=== PATIENT | female | born 1960 | race Caucasian/White ===

== ENCOUNTER → 2016-10-26 | Outpatient (CLI) | payer OTHER ==
[~2016-10-26] MED LIST: ACET-1256 PO; AMT50 PO; ASPI81TA28 PO; ERGO1CAP35 PO; LOSA25TA18 PO
--- NOTE | 2016-10-26 16:40 | MAMMOGRAPHY REPORT ---
BILATERAL DIGITAL DIAGNOSTIC MAMMOGRAM TOMOSYNTHESIS WITH CAD: 10/26/2016 CLINICAL HISTORY: The patient reports diffuse intermittent left breast pain for a few months. She n otes that the pain is located in different places within the breast at different times. She denies any palpable lumps, nipple discharge, or other complaints. TECHNIQUE: Breast tomosynthesis in addition to standard 2D mammography was performed. Current study was also evaluated with a Computer Aided Detection (CAD) system. Bilateral CC and MLO 2-D and paris synthesis images were obtained. COMPARISON: Comparison is made to exams dated: 12/18/2014 mammogram, 03/14/2013 specimen, 03/14/2013 loc alization, 02/04/2013 mammogram, 01/30/2013 mammogram, and 01/30/2012 mammogram - [facility]. BREAST COMPOSITION: There are scattered areas of fibroglandular density in both breasts. FINDINGS: There are no suspicious masses, calcifications, or areas of architectural distortion noted in either breast. There has been no significant interval change compared to prior exams. As the p ain is diffuse and nonfocal, ultrasound was not performed. IMPRESSION: ACR BI-RADS CATEGORY 2: BENIGN No etiology for diffuse intermittent left breast pain evident. There is no mammographic evidence of malignancy in either breast. Recommend clinical follow-up for left breast pain, and recommend rout ine bilateral screening mammograms in one year. The patient has been verbally notified of the resul ts. Approximately 10% of breast cancers are not detected with mammography. A negative mammographic repor t should not delay biopsy if a clinically suggestive mass is present. Isabel Infante M.D. ah/:10/26/2016 14:57:31 Motor Vehicle Inspector: Amanda DUNN)(Alfonso), [facility] letter sent: Normal 1/2 BI-RADS Code: ACR BI-RADS Category 2: Benign
== END | disposition home or self-care (01) ==
LOC: C.MAMM 14:18
PROVIDERS: ATTEND Internal Medicine
DX: N64.4 Mastodynia (principal)

== ENCOUNTER 2017-07-10 23:54 | Emergency (ER) | payer SELFPAY ==
[~2017-07-10] VITALS: Ht 167.6 cm; Wt 98.4 kg
[2017-07-10 23:58] VITALS: TEMP 36.8; Ht 167.6 cm; Wt 98.4 kg
[2017-07-11] MEDS ORDERED: FENTANYL CITRATE INJ 50 MCG/1 ML 2 ML VIAL IV STA (00:11)
[2017-07-11] MEDS ORDERED: FAMOTIDINE 20MG/5ML IV PUSH IV STA (00:11)
[2017-07-11] MEDS ORDERED: SODIUM CHLORIDE 0.9% 1000ML 1,000 ML IV STA (00:11)
[2017-07-11] MEDS ORDERED: ONDANSETRON INJ 2 MG/ML 2 ML VIAL IV STA (00:11)
[2017-07-11] MEDS ORDERED: OPTIRAY 320 IV PRN (01:00)
[2017-07-11] MEDS ORDERED: PRLSR20 PO (01:02)
[2017-07-11] MEDS ORDERED: BUDE1SUS8 NAE (01:02)
[2017-07-11] MEDS ORDERED: CYAN100020 PO (01:02)
[2017-07-11] MEDS ORDERED: AMT25 PO (01:02)
[2017-07-11] MEDS ORDERED: CLR10 PO (01:02)
[2017-07-11] MEDS ORDERED: LOSA50TA6 PO (01:02)
[2017-07-11] MEDS ORDERED: CHOL1TAB42 PO (01:02)
[2017-07-11 01:07] LABS: BASO % 0.4 %; BASO ABS # 0.03 K/uL (0-0.2); EOS % 1.3 %; EOS ABS # 0.09 K/uL (0-0.5); HEMATOCRIT 37.8 % (37-47); HEMOGLOBIN 12.5 g/dL (12.0-16.0); IG# 0.01 K/uL (0.00-0.02); LYMPH ABS # 1.53 K/uL (1.2-3.4); MEAN CELL VOLUME 90.9 fL (80-100); MEAN CORPUSCULAR HGB CONC 33.1 g/dl (32-36); MONO % 6.8 %; MONO ABS # 0.47 K/uL (0.11-0.59); NEUT % 69.4 %; NEUT ABS # 4.82 K/uL (1.4-6.5); PLATELET COUNT 225 K/uL (130-400); RED CELL DISTRIBUTION WIDTH CV 12.9 % (11.5-14.5); RED CELL DISTRIBUTION WIDTH SD 42.8 fL (36.4-46.3); WHITE BLOOD COUNT 6.95 K/uL (4.8-10.8)
[2017-07-11 01:15] LABS: ALBUMIN 3.8 gm/dl (3.4-5.0); ALT/SGPT 26 U/L (12-78); AST/SGOT 14 U/L (15-37); BLOOD UREA NITROGEN 11 mg/dl (7-18); CALCIUM 8.8 mg/dl (8.5-10.1); CARBON DIOXIDE 28 mmol/L (21-32); CREATININE 0.75 mg/dl (0.60-1.20); GLUCOSE 106 mg/dl (70-99); LIPASE 195 U/L (73-393); POTASSIUM 3.4 mmol/L (3.5-5.1); SODIUM 138 mmol/L (136-145)
[2017-07-11 01:17] LABS: ALKALINE PHOSPHATASE 67 U/L (45-117); TOTAL PROTEIN 8.1 gm/dl (6.4-8.2)
[2017-07-11 02:24] LABS: INFLUENZA B ANTIGEN Neg for Influ B (NEG)
[2017-07-11] MEDS ORDERED: ONDA4TAB10 SL (02:42)
[2017-07-11] MEDS ORDERED: FAMO20TA9 PO (02:42)
--- NOTE | 2017-07-11 02:44 | EMERGENCY ROOM VISIT NOTE ---
History Report prepared by Gee: Bisi Morelos Under the Supervision of: Dr. Indra Tripathi M.D. First contact with patient: 00:09 Chief Complaint: ABDOMINAL PAIN Stated Complaint: ABDOMINAL PAIN History of Present Illness The patient is a 57 year old female who presents to the Emergency Room with complaints of worsening abdominal pain starting 20 hours ago. The patient states that she thought it was just gas or constipation, but it hasn't gotten better. She reports that this has never happened before. She states that she had two bowel movements today, one was constipated and one was diarrhea. The patient complains of the pain being worse with movement. The patient complains of nausea and a cough. The patient notes that she is just getting over a cold. She notes that she always has nasal congestion. The patient denies fever, chills , vomiting, urinary symptoms, a history of diabetes, passing gas, hematuria, and ever having a UTI. The patient notes a history of hypertension and takes 50 mg Losartan. She states that she also has GERD, but notes that this does not feel like that. She notes that her mother was just here with pneumonia and the flu. Source of History: patient Onset: 20 hours ago Position: abdomen Timing: worsening Modifying Factors (Worsening): movement Associated Symptoms: + cough, + nausea, + diarrhea, No fevers, No chills, No vomiting, No urinary symptoms Note: The patient denies passing any gas. Review of Systems See HPI for pertinent positives and negatives. A total of ten systems were reviewed and were otherwise negative. Past Medical & Surgical Medical Problems: (1) ALCOH DEP NEC/NOS-EPISOD (2) DISC DEGENERATION NOS (3) HTN (hypertension) (4) IRON DEFIC ANEMIA NOS (5) PURE HYPERCHOLESTEROLEM (6) REFLUX ESOPHAGITIS Family History Patient reports no known family medical history. Social History Smoking Status: Current Some Day Smoker Alcohol Use: none Drug Use: none Marital Status: single Housing Status: lives with family Occupation Status: employed Current/Historical Medications Scheduled Amitriptyline HCl (Amitriptyline HCl), 25 MG PO HS Aspirin (Aspirin Ec), 81 MG PO HS Budesonide (Nasal) (Rhinocort Allergy), 2 SPRAYS SHANTELL HS Cholecalciferol (Vitamin D), 5,000 UNITS PO HS Cyanocobalamin (Vitamin B12), 1,000 MCG PO HS Famotidine (Pepcid), 20 MG PO BID Loratadine (Claritin), 10 MG PO HS Losartan Potassium (Cozaar), 50 MG PO HS Omeprazole (Prilosec), Unknown Dose PO QAM Ondasetron Odt (Zofran Odt), 4 MG SL Q6H Scheduled PRN Acetaminophen (Tylenol), 500-1,000 MG PO Q6 PRN for Pain Allergies Coded Allergies: Adhesives (Verified Allergy, Intermediate, RASH & BREAKS-OUT, ITCHY & BLISTERS, 07/11/17) TO CLEAR TAPE AND STERI-STRIPS Physical Exam Vital Signs Date Time Temp Pulse Resp B/P (MAP) Pulse Ox O2 Delivery O2 Flow Rate FiO2 07/11/17 02:55 89 18 138/73 98 07/11/17 02:08 86 07/11/17 02:08 92 18 114/83 93 07/10/17 23:58 36.8 103 20 157/73 95 Room Air Physical Exam GENERAL: Awake, alert, uncomfortable appearing, in no distress HENT: Normocephalic, atraumatic. Oropharynx unremarkable. EYES: Normal conjunctiva. Sclera non-icteric. NECK: Supple. No nuchal rigidity. FROM. No JVD. RESPIRATORY: Clear to auscultation. CARDIAC: Regular rate, normal rhythm. Extremities warm and well perfused. Pulses equal. ABDOMEN: Soft, non-distended. Generalized tenderness to palpation. No peritoneal signs. No rebound or guarding. No masses. RECTAL: Deferred. MUSCULOSKELETAL: Chest examination reveals no tenderness. The back is symmetrical on inspection without obvious abnormality. There is no CVA tenderness to palpation. No joint edema. LOWER EXTREMITIES: Calves are equal size bilaterally and non-tender. No edema. No discoloration. NEURO: Normal sensorium. No sensory or motor deficits noted. SKIN: No rash or jaundice noted. Medical Decision & Procedures ER Provider Diagnostic Interpretation: Radiology results as stated below per my review and radiologist interpretation: CT ABDOMEN & PELVIS With Contrast: Liver, gallbladder, kidneys, adrenal glands, spleen, and pancreas are unremarkable. Normal appendix visualized. No bowel obstruction or diverticulitis. Urinary bladder and uterus are unremarkable. Bilateral fat- containing inguinal hernias. No acute osseous findings. Radiologist: Nathalia Morris MD Study ready at 02:08 and initial results transmitted at 02:34. Laboratory Results 07/11/17 00:38 Red Blood Count 4.16, Mean Corpuscular Volume 90.9, Mean Corpuscular Hemoglobin 30.0, Mean Corpuscular Hemoglobin Concent 33.1, Mean Platelet Volume 9.0, Neutrophils (%) (Auto) 69.4, Lymphocytes (%) (Auto) 22.0, Monocytes (%) (Auto) 6.8, Eosinophils (%) (Auto) 1.3, Basophils (%) (Auto) 0.4, Neutrophils # (Auto) 4.82, Lymphocytes # (Auto) 1.53, Monocytes # (Auto) 0.47, Eosinophils # (Auto) 0.09, Basophils # (Auto) 0.03 07/11/17 00:38 Test 07/11/17 00:38 07/11/17 01:00 07/11/17 01:03 07/11/17 01:35 White Blood Count 6.95 K/uL (4.8-10.8) Red Blood Count 4.16 M/uL (4.2-5.4) Hemoglobin 12.5 g/dL (12.0-16.0) Hematocrit 37.8 % (37-47) Mean Corpuscular Volume 90.9 fL (80-100) Mean Corpuscular Hemoglobin 30.0 pg (25-34) Mean Corpuscular Hemoglobin Concent 33.1 g/dl (32-36) Platelet Count 225 K/uL (130-400) Mean Platelet Volume 9.0 fL (7.4-10.4) Neutrophils (%) (Auto) 69.4 % Lymphocytes (%) (Auto) 22.0 % Monocytes (%) (Auto) 6.8 % Eosinophils (%) (Auto) 1.3 % Basophils (%) (Auto) 0.4 % Neutrophils # (Auto) 4.82 K/uL (1.4-6.5) Lymphocytes # (Auto) 1.53 K/uL (1.2-3.4) Monocytes # (Auto) 0.47 K/uL (0.11-0.59) Eosinophils # (Auto) 0.09 K/uL (0-0.5) Basophils # (Auto) 0.03 K/uL (0-0.2) RDW Standard Deviation 42.8 fL (36.4-46.3) RDW Coefficient of Variation 12.9 % (11.5-14.5) Immature Granulocyte % (Auto) 0.1 % Immature Granulocyte # (Auto) 0.01 K/uL (0.00-0.02) Anion Gap 6.0 mmol/L (3-11) Est Creatinine Clear Calc Drug Dose 99.1 ml/min Estimated GFR () 103.3 Estimated GFR (Non- 89.1 BUN/Creatinine Ratio 14.6 (10-20) Calcium Level 8.8 mg/dl (8.5-10.1) Total Bilirubin 0.3 mg/dl (0.2-1) Direct Bilirubin < 0.1 mg/dl (0-0.2) Aspartate Amino Transf (AST/SGOT) 14 U/L (15-37) Alanine Aminotransferase (ALT/SGPT) 26 U/L (12-78) Alkaline Phosphatase 67 U/L (45-117) Total Protein 8.1 gm/dl (6.4-8.2) Albumin 3.8 gm/dl (3.4-5.0) Lipase 195 U/L (73-393) Urine Color YELLOW Urine Appearance CLEAR (CLEAR) Urine pH 7.0 (4.5-7.5) Urine Specific Scott 1.008 (1.000-1.030) Urine Protein NEG (NEG) Urine Glucose (UA) NEG (NEG) Urine Ketones NEG (NEG) Urine Occult Blood NEG (NEG) Urine Nitrite NEG (NEG) Urine Bilirubin NEG (NEG) Urine Urobilinogen NEG (NEG) Urine Leukocyte Esterase TRACE (NEG) Urine WBC (Auto) 1-5 /hpf (0-5) Urine RBC (Auto) 0-4 /hpf (0-4) Urine Hyaline Casts (Auto) 0 /lpf (0-5) Urine Epithelial Cells (Auto) 10-20 /lpf (0-5) Urine Bacteria (Auto) NEG (NEG) Lactic Acid Level 1.0 mmol/L (0.4-2.0) Influenza Type A (RT-PCR) POS for Influ A (NEG) Influenza Type A Antigen Neg for Influ A (NEG) Influenza Type B Antigen Neg for Influ B (NEG) Influenza Type B (RT-PCR) Neg for Influ B (NEG) Laboratory results reviewed by me Medications Administered Medications (Trade) Dose Ordered Sig/Lorenzo Route Start Time Stop Time Status Last Admin Dose Admin Sodium Chloride 1,000 ml @ 999 mls/hr Q1H1M STAT IV 07/11/17 00:11 07/11/17 01:11 DC 07/11/17 01:04 999 MLS/HR Fentanyl Citrate (Fentanyl Inj) 50 mcg NOW STAT IV 07/11/17 00:11 07/11/17 00:15 DC 07/11/17 01:04 50 MCG Ondansetron HCl (Zofran Inj) 4 mg NOW STAT IV 07/11/17 00:11 07/11/17 00:15 DC 07/11/17 01:03 4 MG Famotidine (Pepcid 20mg Iv Push) 20 mg ONE STAT IV 07/11/17 00:11 07/11/17 00:15 DC 07/11/17 01:04 20 MG ED Course 0010: The patient was evaluated in room C12B. A complete history and physical exam was performed. 0238: I reevaluated the patient and she was feeling better. Discussed results and discharge instructions: She verbalized understanding and agreement. The patient is ready for discharge. Medical Decision I reviewed the patient's past medical history, medications, and the nursing notes as described above. Differential diagnoses include colitis, diverticulitis, obstruction, constipation, UTI, pyelonephritis, ureteral stone, biliary etiology, gastroenteritis. The patient is a 57-year-old woman who presents emergency Department with any 24 hours of generalized abdominal pain per history of present illness. I'll the patient is uncomfortable but in no acute distress, afebrile stable vital signs. On exam she has generalized abdominal tenderness without any discrete areas of tenderness. Peritoneal signs. Labs unremarkable including WBC and lactate within normal limits. Initial flu screen negative. Reflex PCR pending. Preliminary stat read read of her CT abdomen and pelvis was unremarkable for acute findings, incidental fat-containing inguinal hernias unlikely to cause the patient's symptoms. Patient feeling improved after IV fluids and IV Pepcid. Sx possibly related to a gastroenteritis given that the patient reported some new loose stools. Plan for PCP follow-up. Findings and plan for follow-up reviewed with patient. Patient agreeable and d/c'd per discharge instructions. Medication Reconcilliation Current Medication List: was personally reviewed by me Blood Pressure Screening Patient's blood pressure: Normal blood pressure Blood pressure disposition: Did not require urgent referral Impression Primary Impression: Generalized abdominal pain Additional Impression: Gastroenteritis Scribe Attestation The scribe's documentation has been prepared under my direction and personally reviewed by me in its entirety. I confirm that the note above accurately reflects all work, treatment, procedures, and medical decision making performed by me. Departure Information Dispostion Home / Self-Care Prescriptions Ondasetron Odt (ZOFRAN ODT) 4 Mg Tab 4 MG SL Q6H for Nausea, #6 TAB Prov: Indra Tripathi M.D. 07/11/17 Famotidine (PEPCID) 20 Mg Tab 20 MG PO BID for 7 Days, #14 TAB Prov: Indra Tripathi M.D. 07/11/17 Referrals Farrah Hudson M.D. (PCP) Forms Call Back Authorization, HOME CARE DOCUMENTATION FORM, IMPORTANT VISIT INFORMATION Patient Instructions ED Abdominal Pain Unkn Cause, ED Gastroenteritis Non Infec, My [facility] Additional Instructions Please follow up with your primary care physician in the next 1-3 days for re- evaluation. Causing her symptoms is not entirely clear at this time however may be due to a viral gastroenteritis. Otherwise, your exam, CT scan, and lab results did not show signs of an emergent condition at this time. Pepcid for additional acid reduction. Zofran as needed for nausea. Drink plenty of fluids to ensure hydration. Return to the emergency department for worsening symptoms as described in the accompanying instructions. Problem Qualifiers
[2017-07-11 02:55] VITALS: BP 138/73; PULSE 89; O2SAT 98
[2017-07-11 02:59] LABS: INFLUENZA A PCR POS for Influ A (NEG); INFLUENZA B PCR Neg for Influ B (NEG)
--- NOTE | 2017-07-11 06:38 | DIAGNOSTIC IMAGING REPORT ---
CT ABD/PELVIS IV CONTRAST ONLY CLINICAL HISTORY: Generalized abdominal pain COMPARISON STUDY: None. TECHNIQUE: Following the IV administration of 92 mL of Optiray-320, CT scan of the abdomen and pelvis was performed from the lung bases to the proximal femurs. Images are reviewed in the axial, sagittal, and coronal planes. IV contrast was administered without complication. A dose lowering technique was utilized adhering to the principles of ALARA. CT DOSE: 1112.92 mGy.cm FINDINGS: Lower chest: There are bibasal or dependent atelectatic changes. Liver: The contrast-enhanced liver is normal in size, contour, and attenuation. There is no intrahepatic biliary ductal dilatation. The hepatic veins and portal veins are patent. Gallbladder: Unremarkable. Spleen: Normal in size and attenuation. Pancreas: Unremarkable. Adrenal glands: Unremarkable. Kidneys: There is symmetric renal cortical enhancement. The kidneys are normal in size without hydronephrosis. Bowel: There are no transition zones to indicate bowel obstruction. There is no evidence of acute diverticulitis. There are no findings to indicate acute appendicitis. Peritoneum: There is no intraperitoneal free air or abdominal ascites. Vasculature: The abdominal aorta is normal in course and caliber. Adenopathy: None. Pelvic viscera: The bladder, and pelvic viscera are unremarkable. There is small fat-containing inguinal hernias. Skeletal structures: No destructive osseous lesions are seen. Degenerative changes are present within the spine IMPRESSION: 1. No acute abdominal or pelvic findings 2. No evidence of bowel obstruction. No evidence of free air 3. No evidence of acute appendicitis. No evidence of acute diverticulitis. Electronically signed by: Ant Venegas M.D. 07/11/2017 6:37 AM Dictated Date/Time: 07/11/2017 6:33 AM
== END 2017-07-11 03:01 | disposition home or self-care (01) ==
LOC: C.EDB 23:56 → C.EDC 07-11 03:01
DX: K52.9 Noninfective gastroenteritis and colitis, unspecified (principal); I10 Essential (primary) hypertension; E78.00 Pure hypercholesterolemia, unspecified; K21.0 Gastro-esophageal reflux disease with esophagitis; D50.9 Iron deficiency anemia, unspecified; F17.200 Nicotine dependence, unspecified, uncomplicated; Z79.82 Long term (current) use of aspirin; Z79.899 Other long term (current) drug therapy; Z91.09 Other allergy status, other than to drugs and biological substances